=== PATIENT | female | born 1965 | race Caucasian/White ===

== ENCOUNTER 2018-06-22 15:18 | Outpatient (REF) | payer BC, SELFPAY ==
--- NOTE | 2018-06-22 13:35 | ORMUBX_PTH ---
PATIENT: RAEGAN HAMMOND LOC: [facility] U#:[id number] AGE/SX: 53/F ROOM: RE06/22/[address]: Edy Steele MD : 1965 BED: DIS: 06/22/2018 SPEC #: [id number] RECD: 06/22/18 18:06 STATUS: KARTHIKEYAN REQ #: [id number] ELENA: 06/22/18 13:[address]: Edy Steele DEPT: Surgical Specimen RECD BY: Dalia Lopez ENTERED: 06/22/18 18:07 SP TYPE: ORMUBX OTHR DR: Angie Howe Tissues: 1 - MUCOSA, NOS Procedures: GROSS AND MICRO LEVEL 4 IMMUNOPEROXIDASE STAIN SPECIAL STAIN 1 Comments: [id number]
== END 2018-06-22 15:19 ==
LOC: LBN 15:18
PROVIDERS: PCP Registered Nurse; Visit Provider Otolaryngology
DX: L11.8 Other specified acantholytic disorders (principal); K12.1 Other forms of stomatitis
CPT/HCPCS: 88305; 88312; 88361